=== PATIENT | male | born 1980 | race Caucasian/White ===

== ENCOUNTER 2021-10-11 23:26 | Emergency (ER) | payer BC ==
[2021-10-11 23:41] VITALS: BP 141/93; PULSE 71; TEMP 97.7; BMI 25.0
[2021-10-12] MEDS ORDERED: METOCLOPRAMIDE HCL 10 MG TABLET (FP) PO ONE ×2 (00:40→01:43)
[2021-10-12] MEDS ORDERED: diphenhydrAMINE HCL 25 MG CAPSULE (FP) PO ONE ×2 (00:41→01:42)
[2021-10-12] MEDS ORDERED: KETOROLAC TROMETHAMINE 10 MG TABLET PO ONE ×2 (00:41→01:42)
[2021-10-12] MEDS ORDERED: diazePAM 5 MG TABLET PO ONE (01:13)
[2021-10-12] MEDS ORDERED: diazePAM 5 MG TABLET ONE (01:42)
== END 2021-10-12 02:14 | disposition home or self-care (01) ==
LOC: JER 23:26
DX: M62.830 Muscle spasm of back (principal)
CPT/HCPCS: 99283-25